=== PATIENT | female | born 2000 | race Hispanic/Latino ===

== ENCOUNTER 2023-12-13 06:06 | Inpatient (IN) | payer MEDICAID, OTHER ==
[2023-12-13 06:42] VITALS: BMI 32.8
[2023-12-13] MEDS ORDERED: Tranexamic Acid 1,000 MG/10 ML VIAL IVP PRN (06:43)
[2023-12-13] MEDS ORDERED: Carboprost 250 MCG/ML AMP IM PRN (06:43)
[2023-12-13] MEDS ORDERED: Diphenoxylate HCl/Atropine Tablet PO PRN (06:43)
[2023-12-13] MEDS ORDERED: Misoprostol 200 MCG TAB PR PRN (06:43)
[2023-12-13] MEDS ORDERED: Ibuprofen 800 MG TAB PO PRN (06:43)
[2023-12-13] MEDS ORDERED: Ondansetron PF 4 MG/2 ML Vial IVP PRN ×2 (06:43→16:04)
[2023-12-13] MEDS ORDERED: Promethazine HCl 25 MG/ML VIAL IM PRN ×2 (06:43→16:04)
[2023-12-13] MEDS ORDERED: HYDROcodone/Acetaminophen 5/325 mg Tablet PO PRN (06:43)
[2023-12-13] MEDS ORDERED: hydrALAZINE 20 MG/ML VIAL SLOW IVP PRN (06:43)
[2023-12-13] MEDS ORDERED: Methylergonovine 0.2 MG/ML VIAL IM PRN (06:43)
[2023-12-13] MEDS ORDERED: fentaNYL 50 mcg/mL 1 mL Vial SLOW IVP PRN (06:43)
[2023-12-13] MEDS ORDERED: Lidocaine 1% (PF) 30 ML VIAL SC PRN (06:43)
[2023-12-13] MEDS ORDERED: Oxytocin 30 units/NS 500 ML 500 ML IV SCH ×2 (06:43)
[2023-12-13] MEDS: Lactated Ringer's 1,000 ML IV SCH (07:15)
[2023-12-13] MEDS: Oxytocin 30 units/NS 500 ML 500 ML IV SCH (08:00)
[2023-12-13 08:03] LABS: Hematocrit 36.7 % (34.9-44.5); Hemoglobin 12.4 g/dL (12.0-15.5); Mean Corpuscular HGB CONC 33.8 g/dL (32.0-36.0); Mean Corpuscular Hemoglobin 29.2 pg (27.0-33.0); Mean Corpuscular Volume 86.6 fL (81.6-98.3); Mean Platelet Volume 12.4 fL (7.4-10.4); Platelet Count 208 10x3/uL (150-450); RBC Distribution Width 13.1 % (11.5-14.5); Red Blood Cell (RBC) Count 4.24 10x6/uL (3.90-5.03)
[2023-12-13 08:46] LABS: HBsAg Index 0.25 S/CO (0-0.99); Hep B Surf Ag - L&D Non-Reactive S/CO (NonReactive)
[2023-12-13 08:48] LABS: Syphilis Antibody Nonreactive (Nonreactive); Syphilis Antibody Index 0.02 S/CO (<1.00 Non-Reactive)
[2023-12-13] MEDS: Penicillin G Potassium 5 MILL.UNITS VIAL ONE (13:40)
[2023-12-13] MEDS ORDERED: Penicillin G Potassium 5 MILL.UNITS in Sodium Chloride 0.9% 100 ML IVPB SCH (13:45)
[2023-12-13] MEDS ORDERED: ePHEDrine Sulfate 50 MG/10 ML VIAL SLOW IVP PRN (16:04)
[2023-12-13] MEDS ORDERED: diphenhydrAMINE 50 MG/ML VIAL IVP PRN (16:04)
[2023-12-13] MEDS ORDERED: Acetaminophen 325 MG TAB PO PRN (16:04)
[2023-12-13] MEDS ORDERED: Lactated Ringer's 500 ML IV PRN (16:04)
[2023-12-13] MEDS ORDERED: Moisturizing Cream (Eucerin) 113 GM JAR TOP PRN (16:04)
[2023-12-13] MEDS ORDERED: Naloxone HCl 0.4 mg/ml Vial IVP PRN ×2 (16:04)
[2023-12-13] MEDS ORDERED: fentaNYL 2 mcg/Ropivacaine 0.2% Epidural 100 ML CADD EPIDURAL SCH (16:15)
[2023-12-13] MEDS ORDERED: Communication Order-Pharmacy FS SCH (16:15)
[2023-12-13] MEDS: Penicillin G 2.5 MILL.units 2.5 MILL.UNITS in Premix 1 BAG IVPB SCH (17:57)
[2023-12-13] MEDS: fentaNYL/Ropivacaine Epidural 100 ML ONE (23:17)
[2023-12-14] MEDS: Lidocaine 1% (PF) 30 ML VIAL SC PRN (01:30)
[2023-12-14] MEDS ORDERED: Benzocaine-Menthol 82.5 ML CAN TOP PRN (05:37)
[2023-12-14] MEDS ORDERED: diphenhydrAMINE 25 MG CAP PO PRN (05:37)
[2023-12-14] MEDS ORDERED: Lanolin Ointment 7 GM TUBE TOP PRN (05:37)
[2023-12-14] MEDS ORDERED: hydrALAZINE 20 MG/ML VIAL SLOW IVP PRN (05:37)
[2023-12-14] MEDS ORDERED: Boostrix 0.5 ML (Tdap) VIAL (>/=7 yrs of age) IM ONE (05:37)
[2023-12-14] MEDS ORDERED: Milk Of Magnesia 30 ML UDCUP PO PRN (05:37)
[2023-12-14] MEDS ORDERED: Promethazine HCl 25 MG/ML VIAL IM PRN (05:37)
[2023-12-14] MEDS ORDERED: Bisacodyl 10 MG SUPP PR PRN (05:37)
[2023-12-14] MEDS ORDERED: HYDROcodone/Acetaminophen 5/325 mg Tablet PO PRN (05:37)
[2023-12-14] MEDS ORDERED: Ondansetron PF 4 MG/2 ML Vial IVP PRN (05:37)
[2023-12-14] MEDS: Ibuprofen 800 MG TAB PO SCH (06:08)
[2023-12-14] MEDS: Ferrous Sulfate 325 MG TAB PO SCH (07:08)
[2023-12-14] MEDS: Prenatal Vitamin 1 TAB PO SCH (08:48)
[2023-12-14] MEDS: Docusate 100 MG CAP PO SCH (08:48)
[2023-12-15 19:40] VITALS: BP 133/78; TEMP 97.2
== END 2023-12-15 19:55 | disposition home or self-care (01) | DRG 807 ==
LOC: CSHLD 06:06 → CSHPP 12-14 04:00
PROVIDERS: ADMIT Family Medicine; ATTEND Family Medicine
PROC: 10E0XZZ Delivery of Products of Conception, External Approach (ICD-10-PCS; principal; 2023-12-14)
PROC: 0KQM0ZZ Repair Perineum Muscle, Open Approach (ICD-10-PCS; 2023-12-14)
DX: O99.824 Streptococcus B carrier state complicating childbirth (principal); Z37.0 Single live birth; Z3A.40 40 weeks gestation of pregnancy; O70.1 Second degree perineal laceration during delivery; Z79.82 Long term (current) use of aspirin
CPT/HCPCS: 51702; 85027; 86780; 86850; 86900; 86901; 87340; 88307; J2540; J2590; J7120